=== PATIENT | male | born 1940 | race Caucasian/White ===

== ENCOUNTER → 2022-07-02 | Outpatient (CLI) | payer OTHER ==
[~2022-07-02] MED LIST: CENTRUM SILVER1 EAC1; FINA5; FLUSAL2505 IH; IBUP600; METO25ER; METPRE4; PANT40 PO; TAMS.4ER; TIOT18 IH; TRAM50 PO; [UNRECOGNIZED DRUG - OTHER]
== END | disposition home or self-care (01) ==
LOC: LAB 17:25 → LAB SHORT 17:25
DX: N40.0 Benign prostatic hyperplasia without lower urinary tract symptoms (principal)
CPT/HCPCS: 87086